=== PATIENT | female | born 1930 ===

== ENCOUNTER 2017-10-07 20:48 | Inpatient (IN) | payer MEDICARE, BC ==
[~2017-10-07] VITALS: Ht 154.9 cm; Wt 52.2 kg
--- NOTE | ~2017-10-07 | DS ---
PATIENT:FELIPE JACINTO :34 MEDICAL RECORD: [id number] DISCHARGE SUMMARY ADMISSION DATE: 10/07/17 DISCHARGE DATE: 10/14/17 HISTORY OF PRESENT ILLNESS: Ms. Jacinto is an 87-year-old white female with end-stage renal disease, chronic alf confinement, dialyzing in [place]. She was admitted following dialysis with the onset of fever. Evaluation in the Emergency Room revealed cellulitis of her chronic heel wounds and was admitted for the above. HOSPITAL COURSE: She received IV followed by oral antibiotic therapy. Her mental status improved as well as her legs, seen by wound care and her heels were followed. An x-ray of her heels revealed no evidence of osteomyelitis. She underwent acute dialysis without difficulty. At the time of discharge, she was back to baseline and will continue her p.o. antibiotics as an outpatient. She did have an evidence of a fracture humerus on x-ray, felt to be an old finding, seen by orthopedics, Dr. Rain, who in light of her overall impaired condition recommend conservative therapy, which I agreed with that. She had no pain or significant reduction of the range of motion with this. DISCHARGE DIAGNOSES: 1. Cellulitis of heels, resolving on antibiotic therapy. 2. Chronic fracture, right humerus, conservative therapy. 3. End-stage renal disease, chronic dialysis. 4. Chronic anemia. 5. Dementia with chronic alf confinement. PLAN: The patient will be discharged today on her current meds. She will resume her outpatient [place] dialysis. We will see her weekly in dialysis. She will finish her course of p.o. [place]. TRANSINT:[id number] Voice Confirmation ID: [id number] DOCUMENT ID: [id number] CC: [place] JUAN M Edwards MD at 0714 CC: [id number] DICTATION DATE: 10/14/17 0739 PALLETIZER: 10/15/17 0307 DIS IN 10/14/17 [id number] [place] [address]
[2017-10-08 06:04] VITALS: BP 150/52
[2017-10-08 06:53] LABS: HEMATOCRIT 34.9 % (36.0-48.0); HEMOGLOBIN 11.7 g/dL (12-16); LYMPHOCYTES 2.7 % (15-50); MCH 31.5 pg (26.0-34.0); MCHC 33.5 g/dL (31.0-37.0); MCV 94.1 fL (80.0-100.0); NEUTROPHILS 91.7 % (40-80); PLATELET COUNT 128 10x3/uL (130-400); RBC 3.71 10x6/uL (4.00-5.40); RDW 18.2 % (11.5-14.5); WBC 19.1 10x3/uL (4.8-10.8)
[2017-10-08 07:10] LABS: CALCIUM 9.6 mg/dL (8.5-10.1); CARBON DIOXIDE 27.2 mmol/L (21.0-32.0); CREATININE - SERUM 4.2 mg/dL (0.6-1.3); POTASSIUM - SERUM 4.2 mmol/L (3.5-5.1)
[2017-10-08 07:27] VITALS: BP 140/52; BMI 21.7
[2017-10-08 08:37] VITALS: BP 150/51
[2017-10-08 12:43] VITALS: BP 125/51
[2017-10-08 15:03] VITALS: Ht 154.9 cm; Wt 52.2 kg
[2017-10-08 16:46] VITALS: BP 143/52
[2017-10-08 22:44] VITALS: BP 133/53
[2017-10-09 00:59] VITALS: BP 144/54
[2017-10-09 05:27] VITALS: BP 136/66
[2017-10-09 08:52] VITALS: BP 134/51
[2017-10-09 18:02] VITALS: BP 122/47
[2017-10-09 19:00] VITALS: BP 148/54
[2017-10-10] VITALS: BP 141/57
[2017-10-10 04:00] VITALS: BP 143/51; BP 149/58
[2017-10-10 06:14] LABS: ALBUMIN 1.9 g/dL (3.4-5.0); ANION GAP 14.3 mmol/L (8-16); BASOPHILS 0.3 % (0-2); BILIRUBIN - TOTAL 0.87 mg/dL (0.2-1.3); CALCIUM 9.1 mg/dL (8.5-10.1); CARBON DIOXIDE 26.1 mmol/L (21.0-32.0); CREATININE - SERUM 3.5 mg/dL (0.6-1.3); EOSINOPHILS 3.2 % (0-7); HEMATOCRIT 31.7 % (36.0-48.0); HEMOGLOBIN 10.6 g/dL (12-16); IMMATURE GRANULOCYTES 0.4 % (0-5); LYMPHOCYTES 6.2 % (15-50); MCH 30.4 pg (26.0-34.0); MCHC 33.4 g/dL (31.0-37.0); MCV 90.8 fL (80.0-100.0); MEAN PLATELET VOLUME 10.4 fL (7.4-10.4); MONOCYTES 8.8 % (2-11); NEUTROPHILS 81.1 % (40-80); PHOSPHOROUS 4.2 mg/dL (2.5-4.9); PLATELET COUNT 135 10x3/uL (130-400); RBC 3.49 10x6/uL (4.00-5.40); RDW 15.6 % (11.5-14.5); VANCOMYCIN - RANDOM 11.2 ug/mL (10.0-20.0); WBC 9.7 10x3/uL (4.8-10.8)
[2017-10-10 06:15] LABS: POTASSIUM - SERUM 3.4 mmol/L (3.5-5.1)
[2017-10-10 07:51] VITALS: BP 89/49
[2017-10-10 11:43] VITALS: BP 118/70
[2017-10-10 16:31] VITALS: BP 102/70
[2017-10-10 20:46] VITALS: BP 148/49
[2017-10-11 01:16] VITALS: BP 135/30
[2017-10-11 05:14] VITALS: BP 128/26
[2017-10-11 05:24] LABS: BASOPHILS 0.3 % (0-2); EOSINOPHILS 1.8 % (0-7); HEMATOCRIT 29.2 % (36.0-48.0); HEMOGLOBIN 9.6 g/dL (12-16); IMMATURE GRANULOCYTES 0.6 % (0-5); LYMPHOCYTES 7.4 % (15-50); MCH 29.9 pg (26.0-34.0); MCHC 32.9 g/dL (31.0-37.0); MEAN PLATELET VOLUME 10.3 fL (7.4-10.4); MONOCYTES 10.3 % (2-11); NEUTROPHILS 79.6 % (40-80); RBC 3.21 10x6/uL (4.00-5.40); RDW 15.5 % (11.5-14.5); WBC 10.8 10x3/uL (4.8-10.8)
[2017-10-11 05:36] LABS: PLATELET COUNT 165 10x3/uL (130-400)
[2017-10-11 05:42] LABS: ANION GAP 13.1 mmol/L (8-16); CALCIUM 8.6 mg/dL (8.5-10.1); CARBON DIOXIDE 28.5 mmol/L (21.0-32.0); CREATININE - SERUM 4.8 mg/dL (0.6-1.3); POTASSIUM - SERUM 3.6 mmol/L (3.5-5.1); VANCOMYCIN - RANDOM 19.2 ug/mL (10.0-20.0)
[2017-10-11 08:00] VITALS: BP 110/66
[2017-10-11 11:22] VITALS: BP 109/62
[2017-10-11 16:06] VITALS: BP 120/44
[2017-10-11 20:00] VITALS: BP 137/45
[2017-10-12] VITALS: BP 143/51
[2017-10-12 04:00] VITALS: BP 150/57
[2017-10-12 06:34] LABS: BASOPHILS 0.3 % (0-2); EOSINOPHILS 1.2 % (0-7); HEMATOCRIT 29.9 % (36.0-48.0); HEMOGLOBIN 9.9 g/dL (12-16); IMMATURE GRANULOCYTES 0.5 % (0-5); LYMPHOCYTES 6.6 % (15-50); MCH 30.5 pg (26.0-34.0); MCHC 33.1 g/dL (31.0-37.0); MEAN PLATELET VOLUME 10.8 fL (7.4-10.4); MONOCYTES 7.8 % (2-11); NEUTROPHILS 83.6 % (40-80); PLATELET COUNT 161 10x3/uL (130-400); RBC 3.25 10x6/uL (4.00-5.40); RDW 15.7 % (11.5-14.5); WBC 13.2 10x3/uL (4.8-10.8)
[2017-10-12 06:55] LABS: ANION GAP 17.4 mmol/L (8-16); CALCIUM 9.1 mg/dL (8.5-10.1); CARBON DIOXIDE 25.9 mmol/L (21.0-32.0); CREATININE - SERUM 5.9 mg/dL (0.6-1.3); VANCOMYCIN - RANDOM 18.2 ug/mL (10.0-20.0)
[2017-10-12 06:57] LABS: POTASSIUM - SERUM 4.3 mmol/L (3.5-5.1)
[2017-10-12 07:00] VITALS: BP 134/35
[2017-10-12 12:48] VITALS: BP 110/39
[2017-10-12 21:30] VITALS: BP 116/79
[2017-10-13] VITALS: BP 148/35
[2017-10-13 05:11] LABS: BASOPHILS 0.3 % (0-2); EOSINOPHILS 2.7 % (0-7); HEMATOCRIT 28.9 % (36.0-48.0); HEMOGLOBIN 9.4 g/dL (12-16); IMMATURE GRANULOCYTES 0.7 % (0-5); LYMPHOCYTES 8.6 % (15-50); MCH 29.7 pg (26.0-34.0); MCHC 32.5 g/dL (31.0-37.0); MCV 91.5 fL (80.0-100.0); MEAN PLATELET VOLUME 10.6 fL (7.4-10.4); MONOCYTES 9.6 % (2-11); NEUTROPHILS 78.1 % (40-80); PLATELET COUNT 150 10x3/uL (130-400); RBC 3.16 10x6/uL (4.00-5.40); RDW 15.6 % (11.5-14.5); WBC 9.1 10x3/uL (4.8-10.8)
[2017-10-13 05:19] LABS: ANION GAP 11.2 mmol/L (8-16); CARBON DIOXIDE 28.6 mmol/L (21.0-32.0); POTASSIUM - SERUM 3.8 mmol/L (3.5-5.1); VANCOMYCIN - RANDOM 14.2 ug/mL (10.0-20.0)
[2017-10-13 05:20] LABS: CREATININE - SERUM 3.6 mg/dL (0.6-1.3)
[2017-10-13 06:11] VITALS: BP 122/37
[2017-10-13 08:02] VITALS: BP 115/42
[2017-10-13 11:50] VITALS: BP 126/40
[2017-10-13] MEDS ORDERED: VISTARIL25 MG (13:06)
[2017-10-13] MEDS ORDERED: PHENERGAN25 M1 PO (13:07)
[2017-10-13] MEDS ORDERED: COREG 3.1253.125 MG PO (13:09)
[2017-10-13] MEDS ORDERED: PLAVIX75 MG PO (13:09)
[2017-10-13] MEDS ORDERED: ISOSORBIDE MONO30 M1 PO (13:10)
[2017-10-13] MEDS ORDERED: SYNTHROID88 MCG PO (13:10)
[2017-10-13] MEDS ORDERED: STRESSTABS WITH1 TAB PO (13:11)
[2017-10-13] MEDS ORDERED: PROTONIX20 MG (13:11)
[2017-10-13] MEDS ORDERED: VITAMIN D31000 UNIT PO (13:12)
[2017-10-13] MEDS ORDERED: SUPER B COMPLE150 MG PO (13:12)
[2017-10-13] MEDS ORDERED: TUMS500 MG PO (13:13)
[2017-10-13] MEDS ORDERED: ACIDOPHILUS LAC1 CAP PO (13:13)
[2017-10-13] MEDS ORDERED: NITROSTAT0.4 MG SL (13:14)
[2017-10-13] MEDS ORDERED: ULTRAM50 MG PO (13:15)
[2017-10-13] MEDS ORDERED: ACETAMINOPHEN325 MG PO (13:16)
[2017-10-13 15:12] VITALS: BP 139/45
[2017-10-13 20:00] VITALS: BP 144/54
[2017-10-14] VITALS: BP 155/55
[2017-10-14 04:00] VITALS: BP 141/50
[2017-10-14 05:19] LABS: ANION GAP 13.8 mmol/L (8-16); CALCIUM 9.3 mg/dL (8.5-10.1); CARBON DIOXIDE 26.9 mmol/L (21.0-32.0); CREATININE - SERUM 4.5 mg/dL (0.6-1.3); PHOSPHOROUS 4.5 mg/dL (2.5-4.9); VANCOMYCIN - RANDOM 12.9 ug/mL (10.0-20.0)
[2017-10-14 05:20] LABS: BASOPHILS 0.3 % (0-2); EOSINOPHILS 2.8 % (0-7); HEMATOCRIT 25.8 % (36.0-48.0); HEMOGLOBIN 8.6 g/dL (12-16); IMMATURE GRANULOCYTES 0.6 % (0-5); LYMPHOCYTES 8.8 % (15-50); MCH 30.3 pg (26.0-34.0); MCHC 33.3 g/dL (31.0-37.0); MCV 90.8 fL (80.0-100.0); MEAN PLATELET VOLUME 10.5 fL (7.4-10.4); MONOCYTES 10.9 % (2-11); NEUTROPHILS 76.6 % (40-80); PLATELET COUNT 164 10x3/uL (130-400); RBC 2.84 10x6/uL (4.00-5.40); RDW 15.4 % (11.5-14.5)
[2017-10-14 05:22] LABS: POTASSIUM - SERUM 4.7 mmol/L (3.5-5.1)
[2017-10-14 07:39] VITALS: BP 152/45
== END 2017-10-14 18:43 | DRG 602 ==
LOC: D.M2 20:48
PROVIDERS: Internal Medicine Nephrology
PROC: 5A1D70Z Performance of Urinary Filtration, Intermittent, Less than 6 Hours Per Day (ICD-10-PCS; principal; 2017-10-09)
DX: L03.116 Cellulitis of left lower limb (principal); L89.623 Pressure ulcer of left heel, stage 3; N18.6 End stage renal disease; L89.613 Pressure ulcer of right heel, stage 3; I12.0 Hypertensive chronic kidney disease with stage 5 chronic kidney disease or end stage renal disease; M84.42 Pathological fracture, humerus; L03.115 Cellulitis of right lower limb; Z99.2 Dependence on renal dialysis; F03.90 Unspecified dementia, unspecified severity, without behavioral disturbance, psychotic disturbance, mood disturbance, and anxiety; D53.9 Nutritional anemia, unspecified; J02.0 Streptococcal pharyngitis